=== PATIENT | male | born 1975 | race Caucasian/White ===

== ENCOUNTER 2023-04-02 07:33 | Day surgery (SDC) | payer OTHER, SELFPAY ==
--- NOTE | 2023-04-02 | PATH_ITS ---
[facility] Accession Number: [id number] No. of containers..01 Tissue . 01 Material submitted: . colon - DESCENDING COLON POLYP . 01 Diagnosis: Descending Colon Polyp: Tubular adenoma. [facility] 04/05/2023 1149 Local . 01 Electronically signed: . Blane Saul MD, PhD, Pathologist NPI- [id number] . 01 Gross description: . DESCENDING COLON POLYP: Received in formalin is 1 fragment(s) of knox, soft tissue measuring 0.5 x 0.5 x 0.5 cm submitted entirely in 1 cassette(s) /OMAR 04/04/2023 0038 Local . 01 Pathologist provided ICD-10: D12.4 . 01 CPT . 618854 Specimen Comment: A courtesy copy of this report has been sent to [phone] Performed at: 01 [facility] [address] [place] [address], [place], [place] [id number] MD Gm Dukes MD Phone: [phone]
[2023-04-02 07:57] VITALS: BP 114/77; PULSE 57; RESP 20; TEMP 36; O2SAT 100; BMI 31.6
[2023-04-02] MEDS: LACTATED RINGERS 1,000 ML 42 ML IV (08:04)
--- NOTE | 2023-04-02 08:31 | P.HP_ITS ---
History of Present Illness History of Present Illness Date Patient Seen: 04/02/23 Time Patient Seen: 08:31 Chief complaint: Colonoscopy Narrative: Here for screening [facility] Social History household members: friend(s) Smoking Status: Never smoker alcohol intake: current Meds Home Medications and Allergies Home Medications Medication Instructions Recorded Confirmed Type No Known Home Medications 04/02/23 04/02/23 History Allergies Allergy/AdvReac Type Severity Reaction Status Date / Time No Known Drug Allergies Allergy Verified 04/02/23 07:52 Review of Systems Review of Systems ROS: Yes All systems reviewed with the patient and are negative except as otherwise documented Exam Vital Signs (past 8 hours): - 04/02/23 07:57 Temperature 96.8 F L Pulse Rate 57 L Respiratory Rate 20 Blood Pressure 114/77 Pulse Oximetry 100 Oxygen Delivery Method Room Air Oxygen Flow Rate 0 Oxygen Delivery Method Room Air Oxygen Flow Rate 0 Const General: cooperative HENMT Head: normal to inspection Eyes General: appearance normal, both eyes and all related structures Neck Neck: normal visual inspection Chest Chest: normal inspection of the chest Resp Effort & Inspection: normal respiratory effort Cardio Rate: regular rate GI Inspection: normal to inspection Skin General: no rashes or lesions noted Neuro General: patient alert and patient awake Extrem General: normal to inspection and no pedal edema Psych Appearance: grossly normal Assessment & Plan Assessment & Plan narrative: 48-year-old male here for colon cancer screening. Colonoscopy is pursued today.
--- NOTE | 2023-04-02 08:33 | PM.PREOP ---
Pre-operative Note Interval Note History & Physical reviewed/Exam performed by Physician: Yes Changes to H&P: No ASA Class (for procedural sedation): I
--- NOTE | 2023-04-02 09:35 | PM.OP.COLON ---
Operative Date/Time/Diagnoses Date of procedure: 04/02/23 Time of procedure: 09:36 Pre-op diagnosis: Colon cancer screening Post-op diagnosis: same Procedure & Clinicians Study performed: Colonoscopy with hot snare polypectomy Same procedure as scheduled: Yes Indications: Colon cancer screening Surgeon: Huber Johnson Procedure Notes SCOAP/Timeout: Done Procedure in detail: After the risks and benefits were explained, written and verbal informed consent was obtained. The patient was brought into the procedure room and placed into the left lateral decubitus position. Please see anesthesia notes for sedation details. Digital rectal examination was accomplished. The scope was introduced into the patient and advanced under direct visualization to the cecum as identified by the appendiceal orifice and ileocecal valve. The scope was slowly withdrawn to carefully examine the mucosa for any defects or lesions. Comprehensive imaging was accomplished throughout the rectum including the dentate line. The colon was decompressed, the scope was then removed from the patient who tolerated the procedure well. Bowel prep adequate Adult colonoscope Scope withdrawal time: 13 minutes Sedation minutes: 23 Complications: none Impression: There was an approximately 8 mm pedunculated polyp in the descending colon removed with hot snare. No additional significant mucosal pathology appreciated throughout. Patient had grade 2-3 internal nonbleeding nonthrombosed hemorrhoids. Endoscopic diagnosis 1. Colon polyp 2. Grade 2-3 hemorrhoids Post-procedure Plan for aftercare: 1. Await histopathology. 2. Repeat colonoscopy will likely be suggested for 7 years. Disposition: PACU
[2023-04-02 09:37] VITALS: BP 93/56; PULSE 74; RESP 16; TEMP 36.1; O2SAT 97
[2023-04-02 09:42] VITALS: BP 95/65; PULSE 58; RESP 14; O2SAT 97
[2023-04-02 09:47] VITALS: BP 94/67; PULSE 62; RESP 15; TEMP 36.4; O2SAT 98
[2023-04-02 09:53] VITALS: BP 109/74; PULSE 56; RESP 12; TEMP 36.4; O2SAT 99
[2023-04-02 09:58] VITALS: BP 113/85; PULSE 59; RESP 14; TEMP 36.4; O2SAT 99
== END 2023-04-02 10:12 | disposition home or self-care (01) ==
PROVIDERS: PCP Preventive Medicine Aerospace Medicine; Referring Provider Internal Medicine Gastroenterology; Visit Provider Internal Medicine Gastroenterology
PROC: 0DJD8ZZ Inspection of Lower Intestinal Tract, Via Natural or Artificial Opening Endoscopic (ICD-10-PCS; CPT 45378; principal; 2023-04-02 09:00)
DX: Z12.11 Encounter for screening for malignant neoplasm of colon (principal); K64.1 Second degree hemorrhoids; D12.4 Benign neoplasm of descending colon
CPT/HCPCS: 45385; J2704